=== PATIENT | male | born 1980 | race Caucasian/White ===

== ENCOUNTER 2017-08-06 12:13 | Emergency (ER) | END 2017-08-06 13:46 | disposition left against medical advice (07) | DX: H61.23 Impacted cerumen, bilateral (principal) ==

== ENCOUNTER 2017-12-24 11:48 | Observation (INO) ==
[2017-12-24] MEDS ORDERED: Sod Chloride 0.9% Inj 1,000 ML IV.SIG ONE (11:57)
--- NOTE | 2017-12-24 12:00 | ED ---
HPI General Chief complaint: Seizure Stated complaint: Seizures Time Seen by Provider: 12/24/17 11:56 Source: patient Mode of arrival: EMS Limitations: no limitations History of Present Illness HPI narrative: 37-year-old male with history of traumatic brain injury 7 years ago, presents emergency department for evaluation of seizure x2 today. This was witnessed by on standing physician and inspector repairer. Patient went unresponsive and had tonic-clonic like seizure for approximately 1 minute. When EVAC arrived, patient was postictal. He does not recall the incident. States he has not had a seizure since his brain injury. He states his brain injury was 7 years ago, sustained in a skateboarding accident, and immediately following that he had a seizure but he has not had any seizures since. He is not supposed to be taking any medicine. Patient denies any pain at this time. He states he "feels out of it." Patient denies illicit drug use. Patient's sister is at bedside and does inform us that he does drink a large amount of alcohol daily and has had his last drink 1-1/2 days ago. Patient seems to minimize this and states that he drinks 2-3 times a week but his last drink was 2 days ago,, however his sister tells us he is not being honest. Related Data Home Medications Medication Instructions Recorded Confirmed No Known Home Medications 12/24/17 12/24/17 Allergies Allergy/AdvReac Type Severity Reaction Status Date / Time No Known Allergies Allergy Uncoded 03/12/15 08:36 Review of Systems ROS: all other systems reviewed are negative PMFSH History History Provided By: Patient and Family Member Medical History Medical History Seizure (Acute) TBI (traumatic brain injury) (Acute) Surgical History Surgical History H/O hand surgery (Acute) Social History Social History Substance History: No History of Abuse Second Hand Smoke Exposure: No Smoking Status: Never smoker How Often Do You Have a Drink Containing Alcohol: 2 to 4 times a month [facility] within the Last 8 Weeks: No Recent Out of Country Travel within the Last 8 Weeks: No Exam Narrative Exam Narrative: GENERAL: Well-nourished male patient, in no acute distress. SKIN: Focused skin assessment warm/dry. HEAD: Atraumatic. Normocephalic. EYES: Pupils equal and round. No scleral icterus. No injection or drainage. Pupils are 5 mm, slight reaction. ENT: No nasal bleeding or discharge. Mucous membranes pink and moist. NECK: Trachea midline. No JVD. No cervical spine tenderness to palpation. CARDIOVASCULAR: Tachycardic rate and rhythm. No murmur appreciated. RESPIRATORY: No accessory muscle use. Clear to auscultation. Breath sounds equal bilaterally. GASTROINTESTINAL: Abdomen soft, non-tender, nondistended. Hepatic and splenic margins not palpable. MUSCULOSKELETAL: No obvious deformities. No clubbing. No cyanosis. No edema. Moves all extremities spontaneously and purposeful. NEUROLOGICAL: Lethargic, arousable. No obvious cranial nerve deficits. Motor grossly within normal limits. Normal speech. PSYCHIATRIC: Appropriate mood and affect; insight and judgment normal. Course Initial Documented Vital Signs Pulse Rate 128 H 12/24/17 11:54 Respiratory Rate 18 12/24/17 11:54 Blood Pressure 135/87 12/24/17 11:54 Pulse Oximetry 98 12/24/17 11:54 Last Documented Vital Signs Temperature 97.6 F 12/24/17 17:42 Pulse Rate 107 H 12/24/17 17:42 Respiratory Rate 16 12/24/17 17:42 Blood Pressure 138/84 12/24/17 17:42 Pulse Oximetry 99 12/24/17 17:42 Medical Decision Making NORA Attestation NORA supervised visit: Yes Attestation: I, Dr. Paz, have reviewed the advance practice practitioner' s documentation and am in agreement, met with the patient face to face, made the diagnosis, and the medical decision making was done by me. *My assessment and Findings: Piloerection mydriasis tachycardia hypertension all suggestive of alcohol withdrawal symptoms. MDM Narrative Medical decision making narrative: 37-year-old male presents emergency department for evaluation following seizures x2. Patient is postictal upon arrival. He does have facial twitching and is given 1 mg of Ativan. He does not recall what happened. Per the sister, patient has a significant drinking history with last alcoholic beverage 1-1/2 days ago. With no prior seizure history except for immediately following a traumatic brain injury, this is likely a withdrawal seizure. Lab work is reviewed and without acute concern. CT imaging is without acute intracranial abnormality. I discussed the patient with my attending physician. Patient will be admitted observation for alcohol withdrawal Medical Screen Exam Complete: Yes Emergency Medical Condition: Yes Differential Diagnosis Differential Diagnosis: Electrolyte abnormality versus alcohol withdrawal versus intracranial hemorrhage versus neoplasm Lab Data Result diagrams: 12/24/17 12:14 12/24/17 12:14 Lab Results 12/24/17 12/24/17 12/24/17 Range/Units 12:13 12:14 12:14 WBC 5.0 (4.0-11.0) th/mm3 RBC 3.93 L (4.50-5.90) mil/mm3 Hgb 13.6 (13.0-17.0) gm/dL Hct 39.2 (39.0-51.0) % MCV 99.6 (80.0-100.0) fL MCH 34.5 H (27.0-34.0) pg MCHC 34.7 (32.0-36.0) % RDW 11.9 (11.6-17.2) % Plt Count 139 L (150-450) th/mm3 MPV 8.9 (7.0-11.0) fL Neut % (Auto) 76.3 H (16.0-70.0) % Lymph % (Auto) 13.8 (9.0-44.0) % [place] % (Auto) 8.9 H (0.0-8.0) % Eos % (Auto) 0.5 (0.0-4.0) % Baso % (Auto) 0.5 (0.0-2.0) % Neut # (Auto) 3.8 (1.8-7.7) th/mm3 Lymph # (Auto) 0.7 L (1.0-4.8) th/mm3 [place] # (Auto) 0.4 (0.0-0.9) th/mm3 Eos # (Auto) 0.0 (0.0-0.4) th/mm3 Baso # (Auto) 0.0 (0.0-0.2) th/mm3 WBC Differential . Differential Comment Auto diff final Sodium 140 (136-145) meq/L Potassium 3.6 (3.5-5.1) meq/L Chloride 101 (98-107) meq/L Carbon Dioxide 25.0 (21.0-32.0) meq/L Anion Gap 14 (5-15) meq/L BUN 6 L (7-18) mg/dL Creatinine 1.21 (0.60-1.30) mg/dL Estimated GFR 67 L (>89) mL/min Random Glucose 100 (74-106) mg/dL Calcium 8.4 L (8.5-10.1) mg/dL Magnesium 2.0 (1.5-2.5) mg/dL Total Bilirubin 0.8 (0.2-1.0) mg/dL AST 191 H (15-37) U/L ALT 156 H (12-78) U/L Alkaline Phosphatase 50 (45-117) U/L Total Protein 6.8 (6.4-8.2) g/dL Albumin 3.6 (3.4-5.0) g/dL Urine Opiates Screen Neg (Neg) Ur Barbiturates Screen Neg (Neg) Ur Amphetamines Screen Neg (Neg) U Benzodiazepines Scrn Neg (Neg) Urine Cocaine Screen Neg (Neg) U Cannabinoids Screen Neg (Neg) Serum Alcohol Less than 3 (0-5) mg/dL Imaging Data Radiologist's impression: Head CT 12/24/17 11:57 CONCLUSION: 1. Negative noncontrast head CT. . Discharge Plan Discharge Disposition Patient Disposition: 30 Still Patient Discharge Condition Condition: Stable Discharge Details Diagnosis: Alcohol withdrawal seizure Physicians Team ED Provider: Shantanu Paz ED Midlevel Provider: Radha Moran Primary Care Provider: Primary Care Rhiannon,Ashley Attending Provider: Kayleigh Renee Other Providers: Adrián Duran ED Status: Left Department Discharge Information Discharge Date/Time: 12/24/17 17:00
[2017-12-24 12:30] LABS: Baso % (Auto) 0.5 % (0.0-2.0); Eos % (Auto) 0.5 % (0.0-4.0); Hematocrit 39.2 % (39.0-51.0); Hemoglobin 13.6 gm/dL (13.0-17.0); Lymph # (Auto) 0.7 th/mm3 (1.0-4.8); Lymph % (Auto) 13.8 % (9.0-44.0); Mean Corpuscular HGB Conc 34.7 % (32.0-36.0); Mean Corpuscular Hemoglobin 34.5 pg (27.0-34.0); Mean Corpuscular Volume 99.6 fL (80.0-100.0); Mean Platelet Volume 8.9 fL (7.0-11.0); Mono # (Auto) 0.4 th/mm3 (0.0-0.9); Mono % (Auto) 8.9 % (0.0-8.0); Neut # (Auto) 3.8 th/mm3 (1.8-7.7); Neut % (Auto) 76.3 % (16.0-70.0); Platelet Count 139 th/mm3 (150-450); Red Blood Count 3.93 mil/mm3 (4.50-5.90); Red Cell Distribution Width 11.9 % (11.6-17.2)
[2017-12-24 12:36] LABS: Amphetamine Screen,Urine Neg (Neg); Barbiturate Screen,Urine Neg (Neg); Cannabinoid Screen,Urine Neg (Neg); Cocaine Screen,Urine Neg (Neg)
[2017-12-24 12:37] LABS: Opiate Screen,Urine Neg (Neg)
--- NOTE | 2017-12-24 12:45 | CT ---
EXAM DATE: 12/24/2017 12:19 PM EDT AGE/SEX: 37 years / Male INDICATIONS: Seizure CLINICAL DATA: This is the patient's initial encounter. Patient reports that signs and symptoms have been present for 1 day and indicates a pain score of 4/10. MEDICAL/SURGICAL HISTORY: Seizures. None. RADIATION DOSE: 66.37 CTDI (mGy) COMPARISON: No prior exams available for comparison. TECHNIQUE: CT of the head without contrast. Using automated exposure control and adjustment of the mA and/or kV according to patient size, radiation dose was kept as low as reasonably achievable to ob tain optimal diagnostic quality images. DICOM format image data is available electronically for revi ew and comparison. FINDINGS: Cerebrum: The ventricles are normal for age. No evidence of midline shift, mass lesion, hemorrhage or acute infarction. No extraaxial fluid collections are seen. Posterior Fossa: The cerebellum and brainstem are intact. The 4th ventricle is midline. The cerebe llopontine angle is unremarkable. Extracranial: The visualized portion of the orbits is intact. Skull: The calvaria is intact. No evidence of skull fracture. CONCLUSION: 1. Negative noncontrast head CT. . Electronically signed by: Nestor Allen MD 12/24/2017 12:43 PM EDT
[2017-12-24 12:55] LABS: Albumin 3.6 g/dL (3.4-5.0); Anion Gap 14 meq/L (5-15); Aspartate Aminotransferase 191 U/L (15-37); Blood Urea Nitrogen 6 mg/dL (7-18); Calcium 8.4 mg/dL (8.5-10.1); Chloride 101 meq/L (98-107); Glomerular Filtration Rate 67 mL/min (>89); Glucose,Random 100 mg/dL (74-106); Potassium 3.6 meq/L (3.5-5.1); Sodium 140 meq/L (136-145)
[2017-12-24 13:03] LABS: Alanine Aminotransferase 156 U/L (12-78); Alkaline Phosphatase 50 U/L (45-117); Total Protein 6.8 g/dL (6.4-8.2)
[2017-12-24] MEDS ORDERED: Sod Chloride 0.9% Inj 1,000 ML IV.SIG SCH (13:15)
[2017-12-24] MEDS ORDERED: Acetaminophen 325 MG Tablet PO PRN (15:29)
[2017-12-24] MEDS ORDERED: Bisacodyl 10 MG Supp RECTAL PRN (15:29)
[2017-12-24] MEDS ORDERED: Haloperidol Inj 5 MG/ML Ampul IV.PUSH PRN (15:31)
[2017-12-24] MEDS ORDERED: LORazepam 1 MG Tablet PO PRN (15:31)
--- NOTE | 2017-12-24 16:45 | P.HP ---
History of Present Illness Service: Hospitalist Primary Care Physician: No Primary Care Physician Chief Complaint: Seizure X 2 History of Present Illness: Mr. Momin is a pleasant 37-year-old male with a history of traumatic brain injury approximately 8-9 years ago, heavy alcohol use who presents to the emergency department due to 2 episodes of seizure activity today. Patient was apparently shopping at [employer] and as he was getting out of [employer], he apparently had 2 episodes of tonic-clonic like seizure activities. Patient bit his cheek but no loss of control of bowel or bladder. He admits to drinking a lot. His last drink was 2 days ago. He denies any seizure activities since his traumatic brain injury when he sustained one episode of seizure activity. He does not take any antiseizure medications. He denies any chest pain, shortness of breath, fever or chills. Denies any cough or abdominal pain. No changes in bowel or bladder habits. Past medical history: Traumatic brain injury and one episode of seizure activity after TBI Past surgical history: Hand surgery Social history: Patient drinks quite a bit usually drinks beer. Does not smoke or use illicit drugs. Family history: Father from heart disease, COPD. Mother is alive and has COPD. - Diagnosis (1) Alcohol withdrawal seizure (2) History of traumatic brain injury (3) Alcohol abuse Review of Systems All other systems reviewed negative except as [facility] - History History Provided By: Patient, Family Member - Medical History Medical History: Medical History (Last Reviewed 12/24/17 @ 15:01 by ANH Angela) Seizure TBI (traumatic brain injury) - Surgical History Surgical History: Surgical History (Last Reviewed 12/24/17 @ 15:01 by ANH Angela) H/O hand surgery - Tobacco History Second Hand Smoke Exposure: No Tobacco Use In Past 30 Days: No Smoking Status: Never smoker - Alcohol History How Often Do You Have a Drink Containing Alcohol: 2 to 4 times a month - Substance Use History Substance History: No History of Abuse - Travel History Recent Travel in the [facility] Within the Last 8 Weeks: No Recent Travel Out of the Country Within the Last 8 Weeks: No - Immunization History Tetanus Immunization: Unsure Hx Influenza Vaccine This Season: No Medications and Allergies Active Medications: Active Medications Acetaminophen (Tylenol) 650 mg PO Q4H PRN PRN Reason: Headache, fever, pain 1-4 Al Hydroxide/Mg Hydroxide (Milk Of Magnesia Liq) 30 ml PO Q12H PRN PRN Reason: Mild Constipation Bisacodyl (Dulcolax Supp) 10 mg RECTAL DAILY PRN PRN Reason: SEVERE CONSITIPATION Flumazenil (Romazecon Inj) 0.2 mg IV.PUSH Q1M PRN PRN Reason: OVERSEDATION Folic Acid (Folic Acid) 1 mg PO DAILY SAMINA Haloperidol Lactate (Haldol Inj) 1 mg IV.PUSH Q15M PRN PRN Reason: for severe agitation Sodium Chloride (Ns Inj) 1,000 mls @ 0 mls/hr IV.SIG BOLUS SAMINA Sodium Chloride (Ns Inj) 1,000 mls @ 100 mls/hr IV.CONT .Q10H SAMINA Stop: 12/25/17 15:29 Thiamine HCl 100 mg/ Sodium (Chloride) 101 mls @ 100 mls/hr IV.SIG DAILY SAMINA Stop: 12/27/17 15:59 Lactulose (Lactulose Liq) 30 ml PO DAILY PRN PRN Reason: SEVERE CONSITIPATION Lorazepam (Ativan) 1 mg PO Q4H PRN PRN Reason: for CIWA 8-10 Lorazepam (Ativan) 2 mg PO Q2H PRN PRN Reason: for CIWA 11-14 Lorazepam (Ativan Inj) 2 mg IV.PUSH Q2H PRN PRN Reason: for CIWA 11-14 Lorazepam (Ativan Inj) 2 mg IV.PUSH Q1H PRN PRN Reason: for CIWA 15-20 Lorazepam (Ativan Inj) 2 mg IV.PUSH Q15M PRN PRN Reason: for CIWA > 20 Lorazepam (Ativan Inj) 1 mg IV.PUSH Q4H PRN PRN Reason: for CIWA 8-10 Ondansetron HCl (Zofran Inj) 4 mg IV.PUSH Q6H PRN PRN Reason: NAUSEA OR VOMITING Sennosides (Senokot) 17.2 mg PO Q12H PRN PRN Reason: Moderate Constipation Sodium Chloride (Ns Flush) 2 ml IV.FLUSH PRN PRN PRN Reason: FLUSH AFTER USING IV ACCESS Temazepam (Restoril) 15 mg PO HS PRN PRN Reason: INSOMNIA Thiamine HCl (Vitamin B1) 100 mg PO DAILY [facility] Allergies Allergy/AdvReac Type Severity Reaction Status Date / Time No Known Allergies Allergy Uncoded 03/12/15 08:36 Home Medications Medication Instructions Recorded Confirmed Type No Known Home Medications 12/24/17 12/24/17 History Exam Vital signs: Vital Signs 12/24/17 11:54 12/24/17 12:00 Pulse Rate 128 H 118 H Respiratory Rate 18 18 Blood Pressure 135/87 135/87 Pulse Oximetry 98 99 Intake & Output 12/23/17 12/24/17 12/24/17 18:59 06:59 18:59 Weight 74.843 kg Narrative: GENERAL: This is a well-nourished, well-developed patient, in no apparent distress. SKIN: No rashes, ecchymoses or lesions. Warm and dry. HEAD: Atraumatic. Normocephalic. No temporal or scalp tenderness. EYES: Pupils equal round and reactive. No injection or drainage. ENT: Nose without bleeding, purulent drainage or septal hematoma. Airway patent. NECK: Trachea midline. No lymphadenopathy. Supple, nontender, no meningeal signs. CARDIOVASCULAR: Regular rhythm and tachycardic without murmurs, gallops, or rubs. No JVD. RESPIRATORY: Clear to auscultation. Breath sounds equal bilaterally. No wheezes , rales, or rhonchi. GASTROINTESTINAL: Abdomen soft, non-tender, nondistended. No guarding. MUSCULOSKELETAL: Extremities without clubbing, cyanosis, or edema. NEUROLOGICAL: Awake and alert. Cranial nerves II through XII intact. No focal neurological deficits. Normal speech. Results - Labs CBC & Chem 7: 12/24/17 12:14 12/24/17 12:14 Labs: Laboratory Results - last 24 hr 12/24/17 12/24/17 12/24/17 12:13 12:14 12:14 WBC 5.0 RBC 3.93 L Hgb 13.6 Hct 39.2 MCV 99.6 MCH 34.5 H MCHC 34.7 RDW 11.9 Plt Count 139 L MPV 8.9 Neut % (Auto) 76.3 H Lymph % (Auto) 13.8 [place] % (Auto) 8.9 H Eos % (Auto) 0.5 Baso % (Auto) 0.5 Neut # (Auto) 3.8 Lymph # (Auto) 0.7 L [place] # (Auto) 0.4 Eos # (Auto) 0.0 Baso # (Auto) 0.0 WBC Differential . Differential Comment Auto diff final Sodium 140 Potassium 3.6 Chloride 101 Carbon Dioxide 25.0 Anion Gap 14 BUN 6 L Creatinine 1.21 Estimated GFR 67 L Random Glucose 100 Calcium 8.4 L Magnesium 2.0 Total Bilirubin 0.8 AST 191 H ALT 156 H Alkaline Phosphatase 50 Total Protein 6.8 Albumin 3.6 Urine Opiates Screen Neg Ur Barbiturates Screen Neg Ur Amphetamines Screen Neg U Benzodiazepines Scrn Neg Urine Cocaine Screen Neg U Cannabinoids Screen Neg Serum Alcohol Less than 3 - Imaging Impressions Head CT 12/24/17 11:57 CONCLUSION: 1. Negative noncontrast head CT. . Caprini VTE Risk Assessment Caprini VTE Risk Assessment: No/Low Risk (score <= 1) Caprini Risk Assessment Model: Point Value = 1 Point Value = 2 Point Value = 3 Point Value = 5 Age 41-60 Minor surgery BMI > 25 kg/m2 Swollen legs Varicose veins or History of unexplained or recurrent spontaneous Oral contraceptives or hormone replacement Sepsis (< 1 month) Serious lung disease, including pneumonia (< 1 month) Abnormal pulmonary function Acute myocardial infarction Congestive heart failure (< 1 month) History of inflammatory bowel disease Medical patient at bed rest Age 61-74 Arthroscopic surgery Major open surgery (> 45 min) Laparoscopic surgery (> 45 min) Malignancy Confined to bed (> 72 hours) Immobilizing plaster cast Central venous access Age >= 75 History of VTE Family history of VTE Factor V Leiden Prothrombin [id number] Lupus anticoagulant Anticardiolipin antibodies Elevated serum homocysteine Heparin-induced thrombocytopenia Other congenital or acquired thrombophilia Stroke (< 1 month) Elective arthroplasty Hip, pelvis, or leg fracture Acute spinal cord injury (< 1 month) Prophylaxis Regimen: Total Risk Factor Score Risk Level Prophylaxis Regimen 0-1 Low Early ambulation 2 Moderate Order ONE of the following: *Sequential Compression Device (SCD) *Heparin 5000 units SQ BID 3-4 Higher Order ONE of the following medications: *Heparin 5000 units SQ TID *Enoxaparin/Lovenox 40 mg SQ daily (WT < 150 kg, CrCl > 30 mL/min) *Enoxaparin/Lovenox 30 mg SQ daily (WT < 150 kg, CrCl > 10-29 mL/min) *Enoxaparin/Lovenox 30 mg SQ BID (WT < 150 kg, CrCl > 30 mL/min) AND/OR *Sequential Compression Device (SCD) 5 or more Highest Order ONE of the following medications: *Heparin 5000 units SQ TID (Preferred with Epidurals) *Enoxaparin/Lovenox 40 mg SQ daily (WT < 150 kg, CrCl > 30 mL/min) *Enoxaparin/Lovenox 30 mg SQ daily (WT < 150 kg, CrCl > 10-29 mL/min) *Enoxaparin/Lovenox 30 mg SQ BID (WT < 150 kg, CrCl > 30 mL/min) AND *Sequential Compression Device (SCD) Assessment and Plan - Assessment (1) Alcohol withdrawal seizure Code(s): F10.239 - Alcohol dependence with withdrawal, unspecified; R56.9 - Unspecified convulsions Status: Acute (2) History of traumatic brain injury Code(s): Z87.820 - Personal history of traumatic brain injury Status: Acute (3) Alcohol abuse Code(s): F10.10 - Alcohol abuse, uncomplicated Status: Acute - Plan Mr. Momin is a pleasant 37-year-old male with a history of traumatic brain injury, alcohol abuse who presents to the emergency department due to 2 episodes of seizure activity that occurred at around noon on 2017. Patient reports drinking heavy. He last drank 2 days prior to this admission. After his traumatic brain injury approximately 8-9 years ago, he had one episode of seizure activity. He has not been on any seizure medications. Alcohol withdrawal seizure -Patient's seizure activity is likely related to alcohol withdrawal. -However, due to history of traumatic brain injury, will obtain an input from neurology. Will obtain an EEG. -Continue CIWA protocol. Start Librium 25mg Q8hrs. -Continue thiamine 100 mg IV daily for 3 days and then thiamine 100 mg p.o. daily for 30 days. -Continue folic acid 1 mg daily. -No driving or operating heavy machinery for 6 months. Hx of Traumatic Brain Injury Alcohol abuse -Patient is counselled. He verbalized understanding about the danger of drinking so much. -LFTs are elevated likely due to alcohol abuse. Full code. Ambulation. SCDs. Discharge plan: We will wait for Neurology to see. Patient can likely be discharged within next 24 hours. (1) Alcohol withdrawal seizure Qualifiers: Complication of substance-induced condition: with unspecified complication Qualified Code(s): F10.239 - Alcohol dependence with withdrawal, unspecified; R56.9 - Unspecified convulsions
[2017-12-24] MEDS: Sod Chloride 0.9% Inj 1,000 ML IV.CONT SCH (18:11)
[2017-12-24] MEDS: chlordiazePOXIDE 25 MG Capsule PO SCH ×2 (18:11→21:06)
[2017-12-24] MEDS: Thiamine Inj 100 MG in Sodium Chlor 0.9% Inj 100 ML IV.SIG SCH (19:13)
[2017-12-24] MEDS: Temazepam 15 MG Capsule PO PRN (22:45)
[2017-12-25] MEDS: Sod Chloride 0.9% Inj 1,000 ML IV.CONT SCH ×2 (05:42→17:01)
[2017-12-25] MEDS: chlordiazePOXIDE 25 MG Capsule PO SCH (05:44)
[2017-12-25] MEDS: Thiamine Inj 100 MG in Sodium Chlor 0.9% Inj 100 ML IV.SIG SCH (09:41)
[2017-12-25] MEDS: Folic Acid 1 MG Tablet PO SCH (09:41)
--- NOTE | 2017-12-25 10:26 | P.PNIM ---
Subjective Interval history: f/u; seizure in no acute distress. feels better although still with some hand tremors. no seizure over night. Physical Exam Vital signs: Vital Signs 12/24/17 11:54 12/24/17 12:00 12/24/17 17:42 Temperature 97.6 F Pulse Rate 128 H 118 H 107 H Respiratory Rate 18 18 16 Blood Pressure 135/87 135/87 138/84 Pulse Oximetry 98 99 99 12/24/17 19:55 12/24/17 20:00 12/25/17 00:00 Temperature 98.4 F 98.5 F Pulse Rate 109 H 92 H Respiratory Rate 16 16 Blood Pressure 118/56 L 114/69 Pulse Oximetry 98 97 98 12/25/17 03:23 12/25/17 08:00 Temperature 97.9 F 98.6 F Pulse Rate 81 68 Respiratory Rate 16 16 Blood Pressure 112/62 123/58 L Pulse Oximetry 98 97 Intake & Output 12/24/17 12/25/17 12/25/17 18:59 06:59 18:59 Intake Total 1000 / 1000 1221 / 1221 Balance 1000 / 1000 1221 / 1221 Weight 77.111 kg 77.111 kg Intake: IV 1000 / 1000 1101 / 1101 NS Inj 1,000 ML @ 100 mls/hr IV 1000 / 1000 .CONT .Q10H SAMINA Rx#:[id number] NS Inj 1,000 ML @ Wide Open IV. 1000 / 1000 SIG BOLUS ONE Rx#:[id number] Thiamine Inj 100 MG In NS Inj 101 / 101 100 ML @ 100 mls/hr IV.SIG DAILY SAMINA Rx#:[id number] Oral 120 / 120 Other: # Voids 0 2 Weight On Admission 77.111 kg - Constitutional no acute distress - Routine Respiratory Exam Present: CTA bilaterally - Routine Cardiovascular Exam Present: RRR - Routine Abdominal Exam Present: soft - Routine Extremities Exam Comments: no pedal edema. - Routine Neurological Exam Present: alert, oriented X3, tremors Results - Labs CBC & Chem 7: 12/24/17 12:14 12/24/17 12:14 Laboratory Results - last 24 hr 12/24/17 12/24/17 12/24/17 12:13 12:14 12:14 WBC 5.0 RBC 3.93 L Hgb 13.6 Hct 39.2 MCV 99.6 MCH 34.5 H MCHC 34.7 RDW 11.9 Plt Count 139 L MPV 8.9 Neut % (Auto) 76.3 H Lymph % (Auto) 13.8 [place] % (Auto) 8.9 H Eos % (Auto) 0.5 Baso % (Auto) 0.5 Neut # (Auto) 3.8 Lymph # (Auto) 0.7 L [place] # (Auto) 0.4 Eos # (Auto) 0.0 Baso # (Auto) 0.0 WBC Differential . Differential Comment Auto diff final Sodium 140 Potassium 3.6 Chloride 101 Carbon Dioxide 25.0 Anion Gap 14 BUN 6 L Creatinine 1.21 Estimated GFR 67 L POC Glucose Random Glucose 100 Calcium 8.4 L Magnesium 2.0 Total Bilirubin 0.8 AST 191 H ALT 156 H Alkaline Phosphatase 50 Total Protein 6.8 Albumin 3.6 Urine Opiates Screen Neg Ur Barbiturates Screen Neg Ur Amphetamines Screen Neg U Benzodiazepines Scrn Neg Urine Cocaine Screen Neg U Cannabinoids Screen Neg Serum Alcohol Less than 3 12/24/17 20:58 WBC RBC Hgb Hct MCV MCH MCHC RDW Plt Count MPV Neut % (Auto) Lymph % (Auto) [place] % (Auto) Eos % (Auto) Baso % (Auto) Neut # (Auto) Lymph # (Auto) [place] # (Auto) Eos # (Auto) Baso # (Auto) WBC Differential Differential Comment Sodium Potassium Chloride Carbon Dioxide Anion Gap BUN Creatinine Estimated GFR POC Glucose 100 Random Glucose Calcium Magnesium Total Bilirubin AST ALT Alkaline Phosphatase Total Protein Albumin Urine Opiates Screen Ur Barbiturates Screen Ur Amphetamines Screen U Benzodiazepines Scrn Urine Cocaine Screen U Cannabinoids Screen Serum Alcohol - Imaging Impressions Head CT 12/24/17 11:57 CONCLUSION: 1. Negative noncontrast head CT. . Assessment and Plan - Assessment (1) Alcohol withdrawal seizure Code(s): F10.239 - Alcohol dependence with withdrawal, unspecified; R56.9 - Unspecified convulsions Status: Acute (2) History of traumatic brain injury Code(s): Z87.820 - Personal history of traumatic brain injury Status: Acute (3) Alcohol abuse Code(s): F10.10 - Alcohol abuse, uncomplicated Status: Acute - Plan Mr. Momin is a pleasant 37-year-old male with a history of traumatic brain injury, alcohol abuse who presents to the emergency department due to 2 episodes of seizure activity that occurred at around noon on 2017. Patient reports drinking heavy. He last drank 2 days prior to this admission. After his traumatic brain injury approximately 8-9 years ago, he had one episode of seizure activity. He has not been on any seizure medications. Alcohol withdrawal seizure -Patient's seizure activity is likely related to alcohol withdrawal. -However, due to history of traumatic brain injury, will obtain an input from neurology. Will obtain an EEG. -Continue CIWA protocol. will taper down Librium to 20mg Q8hrs. -Continue thiamine 100 mg IV daily for 3 days and then thiamine 100 mg p.o. daily for 30 days. -Continue folic acid 1 mg daily. -No driving or operating heavy machinery for 6 months. Hx of Traumatic Brain Injury Alcohol abuse -Patient is counselled. He verbalized understanding about the danger of drinking so much. -LFTs are elevated likely due to alcohol abuse. Full code. Ambulation. SCDs. Discharge Planning: awaiting EEG and neurology evaluation. (1) Alcohol withdrawal seizure Qualifiers: Complication of substance-induced condition: with unspecified complication Qualified Code(s): F10.239 - Alcohol dependence with withdrawal, unspecified; R56.9 - Unspecified convulsions
--- NOTE | 2017-12-25 12:17 | ECG ---
Date Performed: 12/24/2017 Time Performed: 12:53:49 PTAGE: 37 years EKG: SINUS TACHYCARDIA ABNORMAL RHYTHM ECG PREVIOUS TRACING 03/20/23 18.55 Since the previous tracing, no significant change noted DOCTOR: Adrián Ahuja Interpretating Date/Time 12/25/2017 12:16:45
--- NOTE | 2017-12-25 14:49 | MG ---
cc: Branden Phillips MD, PhD TEST NUMBER: [id number] TECHNIQUE: A 17-channel EEG. DESCRIPTION: Background rhythm reveals symmetrical alpha rhythm, frequency is 8-10 Hz. Amplitude is about 20 microvolts to 30 microvolts. There is the expected anterior decrement to the response. Rare muscle artifact is identified. Later in the tracing, there is slowing in the theta range, probably related to drowsiness. Some sleep spindles are present related to sleep activity. Occasional very small vertex sharp waves are identified, again related to sleep activity. At times, these are associated with K complexes. There are no lateralizing features. There are no epileptiform discharges. Hyperventilation was done with a good effort with no change in the background rhythm. Photic stimulation results in a very symmetric driving response. INTERPRETATION: This is a normal electroencephalogram. Branden Phillips MD, PhD DILEEP/ct , 02:24 PM , 02:28 PM
[2017-12-25] MEDS: Temazepam 15 MG Capsule PO PRN (22:29)
[2017-12-26 05:19] VITALS: RESP 16
[2017-12-26 08:29] LABS: Chloride 106 meq/L (98-107); Glucose,Random 81 mg/dL (74-106); Potassium 3.1 meq/L (3.5-5.1); Sodium 144 meq/L (136-145)
[2017-12-26 08:33] LABS: Albumin 3.2 g/dL (3.4-5.0); Alkaline Phosphatase 42 U/L (45-117); Anion Gap 13 meq/L (5-15); Aspartate Aminotransferase 127 U/L (15-37); Blood Urea Nitrogen 4 mg/dL (7-18); Calcium 8.8 mg/dL (8.5-10.1); Carbon Dioxide 25.4 meq/L (21.0-32.0); Glomerular Filtration Rate Greater Than 89 mL/min (>89); Total Protein 6.5 g/dL (6.4-8.2)
[2017-12-26 08:44] LABS: Alanine Aminotransferase 127 U/L (12-78)
[2017-12-26] MEDS: Thiamine Inj 100 MG in Sodium Chlor 0.9% Inj 100 ML IV.SIG SCH (09:52)
[2017-12-26] MEDS: Folic Acid 1 MG Tablet PO SCH (10:13)
--- NOTE | 2017-12-26 10:59 | P.PNIM ---
Subjective Interval history: f/u; seizure looks and feels better today. no seizures. no new complaints. d/w the RN. Physical Exam Vital signs: Vital Signs 12/25/17 12:00 12/25/17 14:33 12/25/17 16:00 Temperature 97.4 F L 97.4 F L Pulse Rate 97 H 86 Respiratory Rate 16 16 Blood Pressure 120/73 132/90 Pulse Oximetry 99 99 98 12/25/17 20:00 12/26/17 00:00 12/26/17 04:00 Temperature 98.7 F 98.0 F 97.9 F Pulse Rate 93 H 82 53 L Respiratory Rate 19 19 16 Blood Pressure 132/84 111/73 127/81 Pulse Oximetry 97 97 12/26/17 08:00 Temperature 97.5 F L Pulse Rate 88 Respiratory Rate 16 Blood Pressure 133/91 H Pulse Oximetry 100 Intake & Output 12/25/17 12/26/17 12/26/17 18:59 06:59 18:59 Intake Total 1821 / 1821 2290 / 2290 Balance 1821 / 1821 2290 / 2290 Intake: IV 1101 / 1101 1000 / 1000 NS Inj 1,000 ML @ 100 mls/hr IV 1000 / 1000 1000 / 1000 .CONT .Q10H SAMINA Rx#:[id number] Thiamine Inj 100 MG In NS Inj 101 / 101 100 ML @ 100 mls/hr IV.SIG DAILY SAMINA Rx#:[id number] Oral 720 / 720 1290 / 1290 Other: # Voids 7 2 # Bowel Movements 0 - Constitutional no acute distress - Routine Respiratory Exam Present: CTA bilaterally - Routine Cardiovascular Exam Present: RRR - Routine Abdominal Exam Present: soft - Routine Extremities Exam Comments: no pedal edema. - Routine Neurological Exam Present: alert, oriented X3 Results - Labs CBC & Chem 7: 12/24/17 12:14 12/26/17 06:00 Laboratory Results - last 24 hr 12/26/17 06:00 Sodium 144 Potassium 3.1 L Chloride 106 Carbon Dioxide 25.4 Anion Gap 13 BUN 4 L Creatinine 0.75 Estimated GFR Greater than 89 Random Glucose 81 Calcium 8.8 Total Bilirubin 0.6 AST 127 H ALT 127 H Alkaline Phosphatase 42 L Total Protein 6.5 Albumin 3.2 L Assessment and Plan - Assessment (1) Alcohol withdrawal seizure Code(s): F10.239 - Alcohol dependence with withdrawal, unspecified; R56.9 - Unspecified convulsions Status: Acute (2) History of traumatic brain injury Code(s): Z87.820 - Personal history of traumatic brain injury Status: Acute (3) Alcohol abuse Code(s): F10.10 - Alcohol abuse, uncomplicated Status: Acute - Plan Mr. Momin is a pleasant 37-year-old male with a history of traumatic brain injury, alcohol abuse who presents to the emergency department due to 2 episodes of seizure activity that occurred at around noon on 2017. Patient reports drinking heavy. He last drank 2 days prior to this admission. After his traumatic brain injury approximately 8-9 years ago, he had one episode of seizure activity. He has not been on any seizure medications. Alcohol withdrawal seizure -Patient's seizure activity is likely related to alcohol withdrawal. -However, due to history of traumatic brain injury, awaiting neurology input. EEG normal. -will continue to taper down librium. -thiamine 100 mg p.o. daily for 30 days. -Continue folic acid 1 mg daily. -No driving or operating heavy machinery for 6 months. Hx of Traumatic Brain Injury Alcohol abuse -Patient is counselled. He verbalized understanding about the danger of drinking so much. -LFTs are elevated likely due to alcohol abuse. Hypokalemia; will replace. Full code. Ambulation. SCDs. Discharge Planning: dc home today after seen by neurology. see med list. advised to stop drinking. f/u; pcp. [facility] was consulted prior to discharge. (1) Alcohol withdrawal seizure Qualifiers: Complication of substance-induced condition: with unspecified complication Qualified Code(s): F10.239 - Alcohol dependence with withdrawal, unspecified; R56.9 - Unspecified convulsions
[2017-12-26 12:53] VITALS: BP 130/89; PULSE 91; TEMP 97.4; O2SAT 98
--- NOTE | 2017-12-26 13:51 | P.PNADD ---
Addendum to Inpatient Note Reason for Addendum: Additional Documentation (case d/w ; will obtain MRI brain and if it's negative, the patient can be discharged home with outpatient f/u; this was d/w the patient as well.)
--- NOTE | 2017-12-26 14:39 | MB ---
cc: Sierra Garcia MD DATE: 12/26/2017 REASON FOR CONSULT: Seizures. HISTORY OF PRESENT ILLNESS: The patient is a 37-year-old, left-handed male who presents to the hospital as per review of medical records due to 2 episodes of seizure activities. The patient is seen with no family at bedside. He states that 2 days ago while he was at [employer], he suddenly fell, and the next thing he remembers he was in the emergency room. This was preceded 2 days earlier by symptoms of palpitations, chest discomfort, and tightness, and jittery, and he states that he stopped drinking 5 days prior to this incident. He states that he has had a traumatic brain injury while boarding about 10 years ago where he was in the ICU because of a frontal lobe hemorrhage, and he was on seizure medications for a short time, but he denied ever having a seizure after that head injury incident. Reportedly, the patient bit his cheek, but no loss of control of bowel or bladder. He is not on any antiseizure medication, and he does not follow up with neurologist because he states that he does not have insurance. 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 No records are available. PAST SURGICAL HISTORY: Hand surgery. SOCIAL HISTORY: Drinks beer heavily. He denied smoking or illicit drug abuse. FAMILY HISTORY: Father from heart disease, COPD. Mother is alive and has COPD. PHYSICAL EXAMINATION: GENERAL: Awake, alert, oriented, well-nourished, pleasant. HEENT: Atraumatic, normocephalic. Intact hearing and intact vision. NECK: Trachea midline. No signs of meningeal irritation. Supple. CARDIOVASCULAR: Regular rate and rhythm. No murmurs. RESPIRATORY: Clear to auscultation. No wheezes. GASTROINTESTINAL: Soft abdomen. Not tender. MUSCULOSKELETAL: Without clubbing, cyanosis, or edema. NEUROLOGIC: Awake, alert, oriented to time, person, and place. Intact cranial nerves. Pupils equal and reacting to light. Intact ocular motility. No facial asymmetry. Intact hearing. He moves extremities equally. No tremor. No intention tremor. Intact cerebellar function. Intact sensation. Normal gait and stance. PSYCHOLOGICAL: Cooperative. No hallucination. Mild anxiety. INVESTIGATIONS: Labs: CBC: Hemoglobin 13.6, MCH 34.5, platelet 139. CMP with potassium 3.1, corrected to 3.6. Low BUN. Low calcium at 8.4. Elevated liver enzymes. Toxicology was negative. Radiologic Investigations: - Head CT scanning was reported as a negative study. However review of the scan personally, there was some hyperintensity periventricular and large foramen magnum, and I discussed this with Dr. Millan to do an MRI and reread the head CT scan. 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 - EEG on 12/25/2017/draft, was reported as a normal EEG. IMPRESSION AND PLAN: 1. Seizures. Likely alcohol-related seizures/withdrawal. However, there is history of traumatic brain injury with frontal bleed about 10 years ago with an abnormal head CT scan. 2. History of traumatic brain injury with no sequela. 3. Alcohol abuse. - I discussed the case with the attending physician. - There is no clinical indication to start on antiseizure medication. 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 - Alcohol abuse counseling. - The patient will need to followup with neurology and psychiatry as an outpatient. - If MRI brain comes with no acute abnormality, the patient will be cleared to follow up with an outpatient neurology. The patient's case was discussed with the attending physician. - Thank you for the opportunity to participate in the care of your patient. MD OCTAVIANO Moreno/alo , 02:04 PM , 02:[address] [facility] CENTERLucía
[2017-12-26] MEDS ORDERED: Gadobutrol PF 7.5 MMOL/7.5 ML Vial (for RAD) IV.SIG ONE (16:00)
--- NOTE | 2017-12-26 16:11 | MR ---
EXAM DATE: 12/26/2017 3:43 PM EDT AGE/SEX: 37 years / Male INDICATIONS: Seizures. CLINICAL DATA: This is the patient's initial encounter. Patient reports that signs and symptoms have been present for 1 day and indicates a pain score of 0/10. MEDICAL/SURGICAL HISTORY: Hypertension. . Left hand surgery. [place] [facility] [place]24[place]2017. . TECHNIQUE: Multiplanar, multisequence examination of the brain was performed without and with 7 ml Ga davist (gadobutrol) contrast as a single exam dose. FINDINGS: Cerebrum: The ventricles are normal for age. No evidence of midline shift, mass lesion, hemorrhage or acute infarction. No extraaxial fluid collections are seen. The pituitary gland and suprasellar cistern are normal in configuration. White Matter: No significant signal abnormalities are seen in the white matter. Posterior Fossa: The cerebellum and brainstem are intact. The 4th ventricle is midline. The cerebel lopontine angle is unremarkable. The cerebellar tonsils are normal in position. Incidental finding o f a cisterna magna. Diffusion Imaging: No focal areas of restricted diffusion are seen. No evidence of acute infarction . Extracranial: The visualized portions of the orbits and paranasal sinuses are unremarkable. Post Contrast: No abnormal areas of parenchymal or dural enhancement. No evidence of blood-brain ba rrier breakdown. CONCLUSION: 1. Unremarkable MRI of the brain for patient's age. Electronically signed by: Khurram Tristan MD 12/26/2017 4:10 PM EDT
== END 2017-12-26 18:05 | disposition home or self-care (01) ==
LOC: NEDA 11:48 → NEPC 11:48 → NEDA 17:00 → NEPGCP 17:38
PROVIDERS: ADMIT Internal Medicine; ATTEND Internal Medicine